=== PATIENT | male | born 1940 | race Caucasian/White ===

== ENCOUNTER 2023-10-08 14:07 | Emergency (ER) | payer OTHER ==
[2023-10-08 14:34] VITALS: TEMP 98.6; BMI 22.1
[2023-10-08] MEDS ORDERED: ATORVASTATIN CA 80 MG TABLET (FP) ONE (14:34)
[2023-10-08] MEDS ORDERED: HEPARIN NA (PORCINE) 5,000 UNITS/ML 1ML VIAL ONE (14:34)
[2023-10-08] MEDS ORDERED: TICAGRELOR 90 MG TABLET PO ONE (14:35)
[2023-10-08] MEDS: ATORVASTATIN CA 80 MG TABLET (FP) PO ONE (14:42)
[2023-10-08] MEDS: HEPARIN NA (PORCINE) 5,000 UNITS/ML 1ML VIAL IVPUSH ONE (14:43)
[2023-10-08 14:52] LABS: VENOUS BASE EXCESS 9.8 mmol/L (-2-2); VENOUS PH 7.332 (7.310-7.410)
[2023-10-08 14:53] LABS: HEMATOCRIT 33.7 % (35.4-49); HEMOGLOBIN 10.9 GM/dL (11.7-16.9); MCH 29.7 pg (25.7-33.7); MCHC 32.2 g/dl (32.0-35.9); MEAN PLT VOLUME 8.4 fl (7.5-11.1); PLATELET COUNT 282 10^3/uL (134-434); RBC 3.66 M/mm3 (4.00-5.60); RDW 13.4 % (11.9-15.9); WHITE BLOOD COUNT 9.5 K/mm3 (4.0-10.0)
[2023-10-08 15:01] LABS: INR 1.39 (0.83-1.09); PROTHROMBIN TIME (PATIENT) 15.6 SEC (9.7-13.0)
[2023-10-08 15:04] LABS: ACTIVATED PTT 35.2 SECONDS (25.2-36.5)
[2023-10-08 15:09] LABS: POTASSIUM 3.6 mmol/L (3.5-5.1)
[2023-10-08 15:12] LABS: CALCIUM 10.2 mg/dL (8.5-10.1)
[2023-10-08 15:13] LABS: ALBUMIN 3.1 g/dl (3.4-5.0); BLOOD UREA NITROGEN 30.9 mg/dL (7-18); MAGNESIUM 1.9 mg/dL (1.8-2.4)
[2023-10-08 15:16] LABS: CREATININE 1.4 mg/dL (0.55-1.3)
[2023-10-08 15:17] LABS: BILIRUBIN,TOTAL 0.4 mg/dL (0.2-1); TOT PROT 7.1 g/dl (6.4-8.2)
[2023-10-08] MEDS ORDERED: CEFTRIAXONE 1 GM/50 ML BAG ONE (15:24)
[2023-10-08] MEDS ORDERED: AZITHROMYCIN IVPB 500 MG/250 ML BAG IVPB ONE (15:24)
[2023-10-08] MEDS ORDERED: HEPARIN INFUSION - 25,000 UNITS/500 ML INFUS.BAG IVPB ONE (15:25)
[2023-10-08 15:35] VITALS: BP 140/76; PULSE 92; RESP 24
[2023-10-08] MEDS: AZITHROMYCIN IVPB 500 MG in DEXTROSE 5%-WATER - 250 ML IVPB ONE (15:35)
[2023-10-08] MEDS: CEFTRIAXONE 1 GM in DEXTROSE 5%-WATER - 100 ML IVPB ONE (15:36)
[2023-10-08] MEDS: HEPARIN INFUSION - 25,000 UNITS/500 ML INFUS.BAG IVPB SCH (15:36)
[2023-10-08] MEDS: TICAGRELOR 60 MG TABLET PO ONE (15:38)
[2023-10-08 16:09] LABS: ANISOCYTOSIS 0; MACROCYTOSIS 0
[2023-10-08] MEDS ORDERED: TICAGRELOR 60 MG TABLET PO SCH ×2 (22:00)
== END 2023-10-08 15:39 | disposition short-term general hospital (02) ==
LOC: JER 14:07
PROC: 3E03329 Introduction of Other Anti-infective into Peripheral Vein, Percutaneous Approach (ICD-10-PCS; principal; 2023-10-08)
PROC: 3E03329 Introduction of Other Anti-infective into Peripheral Vein, Percutaneous Approach (ICD-10-PCS; 2023-10-08)
PROC: 3E030GC Introduction of Other Therapeutic Substance into Peripheral Vein, Open Approach (ICD-10-PCS; 2023-10-08)
DX: I21.3 ST elevation (STEMI) myocardial infarction of unspecified site (principal); R09.02 Hypoxemia; J18.9 Pneumonia, unspecified organism; I10 Essential (primary) hypertension; R06.02 Shortness of breath; R05.9 Cough, unspecified; Z20.822 Contact with and (suspected) exposure to COVID-19
CPT/HCPCS: 0241U-QW; 36415; 71045-TC-FY; 71250-TC; 80053; 82803; 83735; 84484; 85025; 85610; 85730; 86850; 86900; 86901; 87040; 93005; 93010; 99291; J1644

== ENCOUNTER 2023-11-21 12:17 | Inpatient (IN) | payer OTHER ==
[2023-11-21 13:15] LABS: BASO % 0.2 % (0-2.0); HEMATOCRIT 29.7 % (35.4-49); HEMOGLOBIN 9.7 GM/dL (11.7-16.9); LYMPH % 3.8 % (8-40); MCH 29.7 pg (25.7-33.7); MCHC 32.8 g/dl (32.0-35.9); MEAN CELL VOLUME 90.6 fl (80-96); MEAN PLT VOLUME 8.8 fl (7.5-11.1); MONO % 11.7 % (3.8-10.2); NEUT % 80.3 % (42.8-82.8); PLATELET COUNT 245 10^3/uL (134-434); RBC 3.28 M/mm3 (4.00-5.60); RDW 14.2 % (11.9-15.9)
[2023-11-21 13:38] LABS: POTASSIUM 3.6 mmol/L (3.5-5.1)
[2023-11-21 13:41] LABS: CALCIUM 10.2 mg/dL (8.5-10.1)
[2023-11-21 13:42] LABS: ALBUMIN 2.8 g/dl (3.4-5.0); BLOOD UREA NITROGEN 28.6 mg/dL (7-18)
[2023-11-21 13:45] LABS: CREATININE 1.5 mg/dL (0.55-1.3)
[2023-11-21 13:46] LABS: BILIRUBIN,TOTAL 0.9 mg/dL (0.2-1)
[2023-11-21 13:50] LABS: N-TERMINAL BNP 3712.2 pg/ml (5-450)
[2023-11-21] MEDS ORDERED: ALBUTEROL SO4 2.5/IPRATROPIUM 0.5 INH SOL 3 ML VIAL.NEB. NEB ONE (13:52)
[2023-11-21] MEDS: ALBUTEROL SO4 2.5/IPRATROPIUM 0.5 INH SOL 3 ML VIAL.NEB. NEB ONE (14:05)
[2023-11-21] MEDS ORDERED: PIPERACILLIN/TAZOB 4.5 GM 4.5 GM/100 ML BAG IVPB ONE (16:24)
[2023-11-21] MEDS ORDERED: methylPREDNISolone NA SUCC 125 MG/2 ML VIAL ONE (16:24)
[2023-11-21] MEDS ORDERED: VANCOMYCIN 1 GRAM (PRE-DOCKED) 1,000 MG/250 ML BAG IVPB ONE (16:24)
[2023-11-21] MEDS: PIPERACILLIN/TAZOB 4.5 GM 4.5 GM in DEXTROSE 5%-WATER 100 ML IVPB ONE (16:40)
[2023-11-21] MEDS: methylPREDNISolone NA SUCC 125 MG/2 ML VIAL IVPB ONE (16:40)
[2023-11-21] MEDS: FUROSEMIDE 40 MG/4 ML INJECTABLE VIAL IVPUSH ONE (17:25)
[2023-11-21] MEDS: VANCOMYCIN 1,000 MG in DEXTROSE 5%-WATER - 250 ML IVPB ONE (17:25)
[2023-11-21] MEDS ORDERED: ALBUTEROL SO4 2.5/IPRATROPIUM 0.5 INH SOL 3 ML VIAL.NEB. NEB PRN (17:52)
[2023-11-21] MEDS ORDERED: HYDROCORTISONE SOD SUCCINATE 100 MG/2 ML VIAL ONE (18:23)
[2023-11-21] MEDS: methylPREDNISolone NA SUCC 40 MG/1 ML VIAL IVPUSH SCH (18:31)
[2023-11-21] MEDS: ATORVASTATIN CA 20 MG TABLET (FP) PO SCH (22:03)
[2023-11-21] MEDS: APIXABAN 2.5 MG TABLET PO SCH (22:03)
[2023-11-22 04:20] VITALS: BMI 20.8
[2023-11-22 07:51] LABS: HEMATOCRIT 29.4 % (35.4-49); HEMOGLOBIN 9.7 GM/dL (11.7-16.9); MCH 29.7 pg (25.7-33.7); MCHC 32.9 g/dl (32.0-35.9); MEAN CELL VOLUME 90.5 fl (80-96); MEAN PLT VOLUME 9.2 fl (7.5-11.1); PLATELET COUNT 255 10^3/uL (134-434); RBC 3.25 M/mm3 (4.00-5.60); RDW 13.8 % (11.9-15.9); WHITE BLOOD COUNT 10.8 K/mm3 (4.0-10.0)
[2023-11-22 08:10] LABS: POTASSIUM 3.7 mmol/L (3.5-5.1)
[2023-11-22 08:27] LABS: BILIRUBIN,TOTAL 0.3 mg/dL (0.2-1); TOT PROT 6.9 g/dl (6.4-8.2)
[2023-11-22 08:28] LABS: CALCIUM 9.3 mg/dL (8.5-10.1); CREATININE 1.8 mg/dL (0.55-1.3)
[2023-11-22 08:29] LABS: ALBUMIN 2.6 g/dl (3.4-5.0); BLOOD UREA NITROGEN 40.2 mg/dL (7-18); MAGNESIUM 1.6 mg/dL (1.8-2.4)
[2023-11-22 09:18] LABS: ANISOCYTOSIS 2+; MACROCYTOSIS 0
[2023-11-22] MEDS: FUROSEMIDE 40 MG/4 ML INJECTABLE VIAL IVPUSH SCH (09:26)
[2023-11-22] MEDS: CHLORTHALIDONE 25 MG TABLET PO SCH (09:29)
[2023-11-22] MEDS: LEFLUNOMIDE 10 MG TABLET PO SCH (09:29)
[2023-11-22] MEDS: ROFLUMILAST 500 MCG TABLET PO SCH (09:29)
[2023-11-22] MEDS: FLUTICASONE/UMECLIDIN/VILANTER(200-62.5-25 TRELEGY ELLIPTA) INAHLER IH SCH (11:33)
[2023-11-22] MEDS: PIPERACILLIN/TAZOB 2.25 GM 2.25 GM in DEXTROSE 5%-WATER - 50 ML IVPB SCH ×2 (17:32→19:59)
[2023-11-22] MEDS: methylPREDNISolone NA SUCC 40 MG/1 ML VIAL IVPUSH SCH (18:15)
[2023-11-22] MEDS: BUDESONIDE/FORMETEROL FUMARATE 160/4.5 mcg INHALER IH SCH (19:59)
[2023-11-23] MEDS: PIPERACILLIN/TAZOB 2.25 GM 2.25 GM in DEXTROSE 5%-WATER - 50 ML IVPB SCH (01:25)
[2023-11-23] MEDS: ARTIFICIAL TEARS OPHTHALMIC DROPS OU ONE (04:37)
[2023-11-23 09:02] LABS: HEMATOCRIT 31.5 % (35.4-49); HEMOGLOBIN 10.5 GM/dL (11.7-16.9); MCH 29.5 pg (25.7-33.7); MCHC 33.3 g/dl (32.0-35.9); MEAN CELL VOLUME 88.8 fl (80-96); MEAN PLT VOLUME 8.7 fl (7.5-11.1); PLATELET COUNT 420 10^3/uL (134-434); RBC 3.55 M/mm3 (4.00-5.60); RDW 14.2 % (11.9-15.9); WHITE BLOOD COUNT 18.4 K/mm3 (4.0-10.0)
[2023-11-23] MEDS: MAGNESIUM SULF 50% (8.12 MEQ/2 ML-1 GM VIAL) IVPB ONE (09:03)
[2023-11-23 09:26] LABS: POTASSIUM 3.3 mmol/L (3.5-5.1)
[2023-11-23 09:28] LABS: CALCIUM 9.3 mg/dL (8.5-10.1)
[2023-11-23 09:32] LABS: CREATININE 2.3 mg/dL (0.55-1.3); PHOSPHOROUS 4.5 mg/dL (2.5-4.9)
[2023-11-23 09:33] LABS: BILIRUBIN,TOTAL 0.4 mg/dL (0.2-1)
[2023-11-23 09:34] LABS: TOT PROT 7.5 g/dl (6.4-8.2)
[2023-11-23] MEDS ORDERED: SODIUM CHLORIDE 0.45% 1,000 ML IV SCH (10:00)
[2023-11-23] MEDS: POTASSIUM CHLORIDE ORAL LIQUID 20 MEQ/15 ML PO ONE (10:52)
[2023-11-23] MEDS ORDERED: ALBUTEROL SO4 0.083% IH SOL 2.5 MG/3 ML VIAL.NEB. NEB PRN (12:12)
[2023-11-23] MEDS: ALBUTEROL SO4 2.5/IPRATROPIUM 0.5 INH SOL 3 ML VIAL.NEB. NEB SCH (14:45)
[2023-11-24 08:37] LABS: HEMATOCRIT 29.8 % (35.4-49); HEMOGLOBIN 9.8 GM/dL (11.7-16.9); MCH 29.4 pg (25.7-33.7); MCHC 32.8 g/dl (32.0-35.9); MEAN CELL VOLUME 89.7 fl (80-96); MEAN PLT VOLUME 8.6 fl (7.5-11.1); PLATELET COUNT 402 10^3/uL (134-434); RBC 3.32 M/mm3 (4.00-5.60); RDW 14.2 % (11.9-15.9); WHITE BLOOD COUNT 16.3 K/mm3 (4.0-10.0)
[2023-11-24 08:39] LABS: POTASSIUM 3.2 mmol/L (3.5-5.1)
[2023-11-24 08:46] LABS: ALBUMIN 2.9 g/dl (3.4-5.0); BLOOD UREA NITROGEN 70.8 mg/dL (7-18); CALCIUM 8.5 mg/dL (8.5-10.1); MAGNESIUM 2.7 mg/dL (1.8-2.4)
[2023-11-24 08:47] LABS: PHOSPHOROUS 4.4 mg/dL (2.5-4.9)
[2023-11-24 08:48] LABS: BILIRUBIN,TOTAL 0.3 mg/dL (0.2-1)
[2023-11-24 08:49] LABS: CREATININE 2.1 mg/dL (0.55-1.3)
[2023-11-24] MEDS: POTASSIUM CHLORIDE TABS 20 MEQ TABLET.ER (FP) PO ONE (09:40)
[2023-11-24] MEDS ORDERED: MAGNESIUM 2GM/50ML STERILE WATER IVPB IVPB ONE (12:00)
[2023-11-24 15:33] VITALS: RESP 20
[2023-11-24] MEDS: POTASSIUM CHLORIDE ORAL LIQUID 20 MEQ/15 ML PO SCH (15:45)
[2023-11-25] MEDS: predniSONE 20 MG TABLET (UD) PO SCH (09:43)
[2023-11-25] MEDS: METHIMAZOLE 5 MG TABLET PO SCH (09:47)
[2023-11-25 12:32] VITALS: BP 154/91; PULSE 112; TEMP 96
== END 2023-11-25 12:48 | DRG 291 ==
LOC: JER 12:17 → JERBED 15:16 → J4W 20:23
PROVIDERS: ADMIT Internal Medicine; ATTEND Internal Medicine
DX: I13.0 Hypertensive heart and chronic kidney disease with heart failure and stage 1 through stage 4 chronic kidney disease, or unspecified chronic kidney disease (principal); I50.33 Acute on chronic diastolic (congestive) heart failure; J44.1 Chronic obstructive pulmonary disease with (acute) exacerbation; N18.2 Chronic kidney disease, stage 2 (mild); E78.5 Hyperlipidemia, unspecified; I25.10 Atherosclerotic heart disease of native coronary artery without angina pectoris; M06.9 Rheumatoid arthritis, unspecified; I48.91 Unspecified atrial fibrillation; F41.8 Other specified anxiety disorders; D64.9 Anemia, unspecified; I35.0 Nonrheumatic aortic (valve) stenosis
CPT/HCPCS: 0241U-QW; 36415; 71045-TC-FY; 80053; 80061; 82728; 83036; 83540; 83550; 83735; 83880; 84100; 84439; 84443; 84466; 84484; 85025; 85027; 87040; 87070; 87205; 87899; 93005; 93010; 93306-TC; 94640; 97116-GP; 97162-GP; 99285-25